=== PATIENT | female | born 1965 | race Caucasian/White ===

== ENCOUNTER 2017-09-24 07:30 | Day surgery (SDC) | payer BC ==
[~2017-09-24] VITALS: Ht 165.1 cm; Wt 80.5 kg
[~2017-09-24 07:30] MED LIST: ASPI325T6 PO; CALCIUM 6001 TA1 PO; NOVOLOG 100U100 U/M1; RAMIPRIL5 MG PO; SYNTHROID 0.0.025 MG PO; ZOCOR5 MG PO
[2017-09-24 07:54] VITALS: BP 133/89; PULSE 60; TEMP 97.8
[2017-09-24] MEDS ORDERED: NOVOLOG 100U100 U/M1 SQ (08:47)
[2017-09-24] MEDS ORDERED: ARIMIDEX1 MG PO (08:48)
[2017-09-24] MEDS ORDERED: ALTACE 5MG5 MG PO (08:48)
[2017-09-24] MEDS ORDERED: ALEVE 220MG220 MG PO (08:49)
[2017-09-24] MEDS ORDERED: ZOCOR 10MG10 MG PO (08:49)
[2017-09-24] MEDS ORDERED: TIROSINT100 MC1 PO (08:50)
[2017-09-24] MEDS ORDERED: ASPIRIN 32325 MG/TAB PO (08:51)
[2017-09-24] MEDS ORDERED: CALCIUM CITRATE1 TA1 PO (08:52)
[2017-09-24] MEDS ORDERED: B-121000 MCG PO (08:53)
[2017-09-24] MEDS ORDERED: MASON NATURAL1200 MG PO (08:53)
[2017-09-24] MEDS ORDERED: EFFEXOR XR75 MG/CAP PO (08:54)
[2017-09-24] MEDS ORDERED: ESTRING0.0075 MG/ VG (08:55)
[2017-09-24 09:29] VITALS: BP 127/97; PULSE 71; TEMP 98.4
[2017-09-24 09:44] VITALS: BP 141/83; PULSE 68
[2017-09-24 09:59] VITALS: BP 136/90; PULSE 58
[2017-09-24 10:14] VITALS: BP 126/94; PULSE 59
[2017-09-24 10:44] VITALS: BP 131/79; PULSE 51
== END 2017-09-24 11:20 | disposition home or self-care (01) ==
LOC: SDCO 07:30
DX: Z12.11 Encounter for screening for malignant neoplasm of colon (principal); Z86.010 Personal history of colon polyps; K64.0 First degree hemorrhoids; E10.9 Type 1 diabetes mellitus without complications; Z79.4 Long term (current) use of insulin; Z79.899 Other long term (current) drug therapy; Z79.811 Long term (current) use of aromatase inhibitors; Z79.82 Long term (current) use of aspirin; Z85.3 Personal history of malignant neoplasm of breast; Z86.718 Personal history of other venous thrombosis and embolism
CPT/HCPCS: OP; J2250; J3010; J7030